=== PATIENT | male | born 1995 | race Caucasian/White ===

== ENCOUNTER 2022-05-23 23:37 | Emergency (ER) | payer OTHER ==
[~2022-05-23] VITALS: Ht 162.6 cm; Wt 66.0 kg
[2022-05-23 23:49] VITALS: BP 135/83
[2022-05-24 01:21] LABS: Albumin 4.6 g/dL (3.4-5.0); BUN/Creatinine Ratio 23.2; Calcium 9.5 mg/dL (8.5-10.1); Potassium 3.9 mmol/L (3.5-5.1)
[2022-05-24 01:24] LABS: Bilirubin, Total 0.5 mg/dL (0.2-1.0); Total Protein 7.7 g/dL (6.4-8.2)
[2022-05-24 02:01] LABS: Hepatitis B Surface Antibody Positive (Negative)
[2022-05-24] MEDS ORDERED: EMTRTAB7 PO (04:48)
[2022-05-24] MEDS ORDERED: RALT400T PO (04:48)
== END 2022-05-24 01:05 | disposition home or self-care (01) ==
LOC: ER 23:37
DX: S61.232A Puncture wound without foreign body of right middle finger without damage to nail, initial encounter (principal); W46.1XXA Contact with contaminated hypodermic needle, initial encounter; Y93.89 Activity, other specified; Y92.89 Other specified places as the place of occurrence of the external cause; Y99.8 Other external cause status
CPT/HCPCS: 36415; 80053; 86703; 86706; 86803; 87340